=== PATIENT | female | born 1990 | race Hispanic/Latino ===

== ENCOUNTER 2021-08-01 08:32 | Outpatient (CLI) | payer BC | END 2021-08-01 08:33 | disposition home or self-care (01) | LOC: CSHLAB 08:32 | PROVIDERS: ATTEND Obstetrics & Gynecology | DX: Z20.822 Contact with and (suspected) exposure to COVID-19 (principal) | CPT/HCPCS: U0003; U0005 ==

== ENCOUNTER 2021-08-06 19:00 | Inpatient (IN) | payer BC ==
[2021-08-06] MEDS ORDERED: Acetaminophen 500 MG TAB PO PRN (21:00)
[2021-08-06] MEDS ORDERED: NS w/ Oxytocin 30 units 500 ML IV SCH (21:00)
[2021-08-06] MEDS ORDERED: Ondansetron PF 4 MG/2 ML Vial IVP PRN (21:00)
[2021-08-06] MEDS ORDERED: Diphenoxylate HCl/Atropine Tablet PO PRN ×2 (21:00)
[2021-08-06] MEDS ORDERED: Docusate 100 MG CAP PO PRN (21:00)
[2021-08-06] MEDS ORDERED: Misoprostol 200 MCG TAB PR PRN (21:00)
[2021-08-06] MEDS ORDERED: hydrALAZINE 20 MG/ML VIAL SLOW IVP PRN (21:00)
[2021-08-06] MEDS ORDERED: Butorphanol Tartrate 1 MG/ML VIAL SLOW IVP PRN (21:00)
[2021-08-06] MEDS ORDERED: Promethazine HCl 25 MG/ML VIAL IM PRN (21:00)
[2021-08-06] MEDS ORDERED: Lidocaine 1% (PF) 30 ML VIAL SC PRN (21:00)
[2021-08-06] MEDS ORDERED: HYDROcodone/Acetaminophen 5/325 mg Tablet PO PRN ×2 (21:00)
[2021-08-06] MEDS ORDERED: Zolpidem Tartrate 5 MG TAB PO PRN (21:00)
[2021-08-06] MEDS ORDERED: Ibuprofen 800 MG TAB PO PRN (21:00)
[2021-08-06] MEDS: Misoprostol 100 MCG TAB VAG SCH (21:18)
[2021-08-06 22:27] VITALS: BMI 40.8
[2021-08-06 22:28] LABS: Hemoglobin 11.4 g/dL (12.0-15.5); Mean Corpuscular HGB CONC 34.9 g/dL (32.0-36.0); Mean Corpuscular Hemoglobin 29.5 pg (27.0-33.0); Mean Corpuscular Volume 84.5 fl (81.6-98.3); Platelet Count 234 10x3/uL (150-450); RBC Distribution Width 13.6 % (11.5-14.5); Red Blood Cell (RBC) Count 3.87 10x6/uL (3.90-5.03)
[2021-08-06 23:00] LABS: Syphilis Antibody Nonreactive (Nonreactive); Syphilis Antibody Index 0.04 S/CO (<1.00 Non-Reactive)
[2021-08-06 23:01] LABS: HIV (1/2) Antibody/Antigen Non-Reactive (NonReactive); HIV 1/2 INDEX 0.05 S/CO (<1.00); Hep B Surf Ag Non-Reactive S/CO (NonReactive)
[2021-08-06 23:02] LABS: HBSAg Index 0.15 S/CO (0-0.99)
[2021-08-07] MEDS: Misoprostol 100 MCG TAB VAG SCH (00:47)
[2021-08-07] MEDS: NS w/ Oxytocin 30 units 500 ML IV SCH ×2 (08:02→20:48)
[2021-08-07] MEDS ORDERED: Fentanyl 2 mcg/Bup 0.1% Cadd 100 ML ONE (13:23)
[2021-08-07] MEDS: Lactated Ringer's 1,000 ML IV SCH ×2 (13:50→18:15)
[2021-08-07] MEDS: Fentanyl 2 mcg/Bupivacaine 0.1% Cassette 100 ML EPIDURAL SCH ×2 (14:06→23:00)
[2021-08-07] MEDS ORDERED: Acetaminophen 325 MG TAB PO PRN (14:25)
[2021-08-07] MEDS ORDERED: Naloxone HCl 0.4 mg/ml Vial IVP PRN ×2 (14:25)
[2021-08-07] MEDS ORDERED: Promethazine HCl 25 MG/ML VIAL IM PRN (14:25)
[2021-08-07] MEDS ORDERED: diphenhydrAMINE 50 MG/ML VIAL IVP PRN (14:25)
[2021-08-07] MEDS ORDERED: Lactated Ringer's 500 ML IV PRN (14:25)
[2021-08-07] MEDS ORDERED: Ondansetron PF 4 MG/2 ML Vial IVP PRN (14:25)
[2021-08-07] MEDS ORDERED: Moisturizing Cream (Eucerin) 113 GM JAR TOP PRN (14:25)
[2021-08-07] MEDS ORDERED: ePHEDrine Sulfate 50 MG/10 ML VIAL SLOW IVP PRN (14:25)
[2021-08-07] MEDS ORDERED: Communication Order-Pharmacy FS SCH (14:30)
[2021-08-07] MEDS ORDERED: Tranexamic Acid 1,000 MG/10 ML VIAL ONE (23:44)
[2021-08-07] MEDS ORDERED: Misoprostol 200 MCG TAB ONE (23:44)
[2021-08-07] MEDS ORDERED: Carboprost 250 MCG/ML AMP ONE (23:44)
[2021-08-07] MEDS ORDERED: Methylergonovine 0.2 MG/ML VIAL ONE (23:44)
[2021-08-07] MEDS ORDERED: Azithromycin 500 MG in Sodium Chloride 0.9% 250 ML 250 ML IVPB SCH (23:45)
[2021-08-07] MEDS ORDERED: ceFAZolin 2 GM/Dextrose 50 ML 2 GM in Premix Bag 1 BAG IVPB SCH (23:45)
[2021-08-07] MEDS ORDERED: ceFAZolin 2 GM/Dextrose 50 ML IVPB ONE (23:47)
[2021-08-07] MEDS ORDERED: Azithromycin 500 MG VIAL ONE (23:47)
[2021-08-07] MEDS ORDERED: Bicitra 30 ML UDCUP PO PRN (23:58)
[2021-08-07] MEDS ORDERED: Famotidine/PF 20 mg/2ml Vial SLOW IVP PRN (23:58)
[2021-08-08] MEDS ORDERED: diphenhydrAMINE 50 MG/ML VIAL IVP PRN (00:06)
[2021-08-08] MEDS ORDERED: Fentanyl 100 MCG/2 ML VIAL SLOW IVP PRN (00:06)
[2021-08-08] MEDS ORDERED: Naloxone HCl 0.4 mg/ml Vial IVP PRN ×2 (00:06)
[2021-08-08] MEDS ORDERED: Ondansetron PF 4 MG/2 ML Vial IVP PRN (00:06)
[2021-08-08] MEDS ORDERED: Ondansetron HCl/PF 4 MG/2 ML Vial IVP PRN (00:06)
[2021-08-08] MEDS ORDERED: Meperidine HCl/PF 25 MG/ML VIAL SLOW IVP PRN (00:06)
[2021-08-08] MEDS ORDERED: Promethazine HCl 25 MG/ML VIAL IM PRN (00:06)
[2021-08-08] MEDS ORDERED: Moisturizing Cream (Eucerin) 113 GM JAR TOP PRN (00:06)
[2021-08-08] MEDS ORDERED: Naloxone HCl 0.4 mg/ml Vial IV PRN (00:06)
[2021-08-08] MEDS ORDERED: Promethazine HCl 25 MG SUPP PR PRN (00:06)
[2021-08-08] MEDS ORDERED: Communication Order-Pharmacy FS SCH (00:15)
[2021-08-08] MEDS ORDERED: Ondansetron PF 4 MG/2 ML Vial ONE (00:23)
[2021-08-08] MEDS ORDERED: Ketorolac Tromethamine 30 MG/ML VIAL ONE (00:23)
[2021-08-08] MEDS ORDERED: Lidocaine 2% MPF 10 ML AMP (For Epidural Use) ONE (00:23)
[2021-08-08] MEDS ORDERED: Oxytocin 10 UNITS/ML VIAL ONE (00:23)
[2021-08-08] MEDS ORDERED: Dexamethasone 4 mg/ml Vial ONE (00:23)
[2021-08-08] MEDS ORDERED: Bupivacaine PF 0.5% 30 ML VIAL ONE (01:01)
[2021-08-08] MEDS ORDERED: Morphine PF 10 MG/10 ML VIAL ONE (01:01)
[2021-08-08] MEDS ORDERED: Lanolin Ointment 7 GM TUBE TOP PRN (04:59)
[2021-08-08] MEDS ORDERED: Simethicone Chewable 80 MG TAB PO PRN (04:59)
[2021-08-08] MEDS ORDERED: Misoprostol 200 MCG TAB PR PRN (04:59)
[2021-08-08] MEDS ORDERED: Boostrix 0.5 ML (Tdap) VIAL IM ONE (04:59)
[2021-08-08] MEDS ORDERED: Methylergonovine 0.2 MG/ML VIAL IM PRN (04:59)
[2021-08-08] MEDS ORDERED: hydrALAZINE 20 MG/ML VIAL SLOW IVP PRN (04:59)
[2021-08-08] MEDS ORDERED: NS w/ Oxytocin 30 units 500 ML IV SCH (04:59)
[2021-08-08] MEDS: Lactated Ringer's 1,000 ML IV SCH (05:10)
[2021-08-08] MEDS: Misoprostol 100 MCG TAB VAG SCH ×2 (05:10→05:11)
[2021-08-08] MEDS: Ketorolac Tromethamine 30 MG/ML VIAL IVP SCH ×3 (06:00→18:06)
[2021-08-08] MEDS: Ferrous Sulfate 325 MG TAB PO SCH ×2 (07:20→21:54)
[2021-08-08] MEDS: Prenatal Vitamin 1 TAB PO SCH (08:23)
[2021-08-08] MEDS ORDERED: HYDROcodone/Acetaminophen 5/325 mg Tablet PO PRN (12:52)
[2021-08-08] MEDS: HYDROcodone/Acetaminophen 5/325 mg Tablet PO PRN (14:37)
[2021-08-09] MEDS: Ketorolac Tromethamine 30 MG/ML VIAL IVP SCH (00:07)
[2021-08-09 04:57] LABS: Hemoglobin 7.2 g/dL (12.0-15.5); Mean Corpuscular HGB CONC 33.3 g/dL (32.0-36.0); Mean Corpuscular Hemoglobin 29.5 pg (27.0-33.0); Mean Corpuscular Volume 88.5 fl (81.6-98.3); Mean Platelet Volume 10.8 fl (7.4-10.4); Platelet Count 161 10x3/uL (150-450); RBC Distribution Width 13.7 % (11.5-14.5); Red Blood Cell (RBC) Count 2.44 10x6/uL (3.90-5.03); White Blood Cell (WBC) Count 15.4 10x3/uL (3.5-10.5)
[2021-08-09] MEDS: Ibuprofen 800 MG TAB PO SCH ×3 (05:58→21:29)
[2021-08-09] MEDS: Ferrous Sulfate 325 MG TAB PO SCH ×2 (08:14→21:29)
[2021-08-09] MEDS: Prenatal Vitamin 1 TAB PO SCH (08:14)
[2021-08-09] MEDS: HYDROcodone/Acetaminophen 5/325 mg Tablet PO PRN ×2 (08:14→14:32)
[2021-08-10] MEDS: Ibuprofen 800 MG TAB PO SCH (06:06)
[2021-08-10 07:52] VITALS: BP 105/56; TEMP 98.1
[2021-08-10] MEDS: Ferrous Sulfate 325 MG TAB PO SCH (08:54)
[2021-08-10] MEDS: Prenatal Vitamin 1 TAB PO SCH (08:54)
== END 2021-08-10 10:35 | disposition home or self-care (01) | DRG 787 ==
LOC: CSHLD 19:08 → CSHPP 08-08 04:25
PROVIDERS: ADMIT Obstetrics & Gynecology; ATTEND Obstetrics & Gynecology
PROC: 3E0P7VZ Introduction of Hormone into Female Reproductive, Via Natural or Artificial Opening (ICD-10-PCS; 2021-08-07)
PROC: 10907ZC Drainage of Amniotic Fluid, Therapeutic from Products of Conception, Via Natural or Artificial Opening (ICD-10-PCS; 2021-08-07)
PROC: 3E0234Z Introduction of Serum, Toxoid and Vaccine into Muscle, Percutaneous Approach (ICD-10-PCS; 2021-08-07)
PROC: 3E033VJ Introduction of Other Hormone into Peripheral Vein, Percutaneous Approach (ICD-10-PCS; 2021-08-07)
PROC: 10H07YZ Insertion of Other Device into Products of Conception, Via Natural or Artificial Opening (ICD-10-PCS; 2021-08-07)
PROC: 10D00Z1 Extraction of Products of Conception, Low, Open Approach (ICD-10-PCS; principal; 2021-08-08)
DX: O26.893 Other specified pregnancy related conditions, third trimester (principal); D62 Acute posthemorrhagic anemia; O33.9 Maternal care for disproportion, unspecified; O32.4XX0 Maternal care for high head at term, not applicable or unspecified; O99.284 Endocrine, nutritional and metabolic diseases complicating childbirth; E28.2 Polycystic ovarian syndrome; E55.9 Vitamin D deficiency, unspecified; O61.0 Failed medical induction of labor; O32.8XX0 Maternal care for other malpresentation of fetus, not applicable or unspecified; O90.81 Anemia of the puerperium; Z67.41 Type O blood, Rh negative; Z98.890 Other specified postprocedural states; Z79.899 Other long term (current) drug therapy; Z3A.39 39 weeks gestation of pregnancy; Z37.0 Single live birth; Z86.16 Personal history of COVID-19; Z79.82 Long term (current) use of aspirin
CPT/HCPCS: 36415; 51702; 85027; 85461; 86780; 86850; 86900; 86901; 87340; 87389; 90384; 96372; J0595; J1100; J1885; J2210; J2274; J2405; J2590; J7120; S0020